=== PATIENT | female | born 1985 | race Caucasian/White ===

== ENCOUNTER 2022-09-13 10:31 | Outpatient (CLI) | payer BC, SELFPAY ==
[2022-09-13 12:40] LABS: Cholesterol* 186 mg/dL (90-199); Glucose* 100 mg/dL (60-115); HDL Cholesterol* 75 mg/dL (>=50); LDL Cholesterol Calculated 100 mg/dL (<100); Triglycerides* 54 mg/dL (40-149)
== END 2022-09-13 10:32 | disposition home or self-care (01) ==
PROVIDERS: Visit Provider Registered Nurse
DX: Z01.419 Encounter for gynecological examination (general) (routine) without abnormal findings (principal); Z13.6 Encounter for screening for cardiovascular disorders; Z13.1 Encounter for screening for diabetes mellitus
CPT/HCPCS: 80061; 82947

== ENCOUNTER 2022-10-24 08:31 | Outpatient (CLI) | payer BC, SELFPAY | END 2022-10-24 08:32 | disposition home or self-care (01) | PROVIDERS: Visit Provider Dermatology | DX: L65.9 Nonscarring hair loss, unspecified (principal) | CPT/HCPCS: 84443 ==